=== PATIENT | female | born 1985 | race Caucasian/White ===

== ENCOUNTER 2016-07-09 10:55 | Emergency (ER) | payer OTHER ==
[~2016-07-09] VITALS: Ht 160 cm; Wt 50.5 kg
[~2016-07-09 10:55] MED LIST: AUGMENTIN875 MG PO; BACTRIM,SEPT1 TABLET PO; CETIRIZINE HCL10 M2 PO; CIPRODEX OTIC7.5 ML LEFT EAR; CLEOCIN300 MG PO; EXCEDRIN MIGRA1 EAC1 PO; GABAPENTIN400 MG PO; GABAPENTIN800 MG PO; IBUPROFEN800 MG PO; KEPPRA500 MG PO; LEVAQUIN500 MG PO; LEVETIRACETAM250 MG PO; MECLIZINE HCL25 MG PO; MEDROL DOSEPAK4 MG PO; NAPROSYN500 MG PO; NAPROXEN500 MG PO; NOHOMEMEDS; NORCO 5/3251 TABLET PO; OTIPRIO1 ML BOTH EARS; PAROXETINE HCL40 MG PO; PERCOCET 5/31 TABLET PO; PREDNISONE20 MG PO; PROGESTERONE200 MG PO; RANITIDINE HCL150 MG PO; ROXICODONE5 MG PO; SOMA350 MG PO; TIZANIDINE HCL4 MG PO; TYLENOL EXTRA500 MG PO; VALIUM5 MG PO; ZOFRAN ODT4 MG PO; ZOFRAN8 MG PO
[2016-07-09] MEDS ORDERED: ATARAX,VISTARIL25 MG PO (13:48)
[2016-07-09 14:03] VITALS: BP 119/68
== END 2016-07-09 14:04 | disposition home or self-care (01) ==
LOC: EME 10:55
DX: T38.0X5A Adverse effect of glucocorticoids and synthetic analogues, initial encounter (principal); F41.9 Anxiety disorder, unspecified; F43.9 Reaction to severe stress, unspecified; Z98.890 Other specified postprocedural states; F17.200 Nicotine dependence, unspecified, uncomplicated; Z71.6 Tobacco abuse counseling
CPT/HCPCS: 99281; 99284; Q0177

== ENCOUNTER 2016-10-11 20:06 | Emergency (ER) | payer SELFPAY ==
[~2016-10-11] VITALS: Ht 162.6 cm; Wt 52.6 kg
[~2016-10-11 20:06] MED LIST changes: +ATARAX,VISTARIL25 MG PO
[2016-10-11 20:19] VITALS: BP 144/96
[2016-10-11 21:32] LABS: HEMATOCRIT 39.2 % (36.0-46.0); MCHC 31.9 G/DL (30.0-36.0); MEAN PLAT.VOLUME 10.7 uM^3 (9.5-12.4); PLATELET COUNT 163 K/uL (156-360); RBC DIS.WIDTH-CV 14.8 % (11.8-14.6); RBC DIS.WIDTH-SD 51.1 % (39-53); RED BLOOD COUNT 4.17 M/uL (3.80-5.20); WHITE BLOOD COUNT 7.3 K/uL (4.1-10.2)
[2016-10-11 21:40] LABS: CHLORIDE 106 mEq/L (99-109); POTASSIUM 3.6 mEq/L (3.7-5.4); SODIUM 139 mEq/L (136-147)
[2016-10-11 21:42] LABS: GLUCOSE 79 mg/dL (70-99)
[2016-10-11 21:43] LABS: ANION GAP 9 MEQ/L (2-14)
[2016-10-11 21:45] LABS: GFR ESTIMATE (CALCULATED) > 59 mL/min/
[2016-10-11 21:46] LABS: UREA NITROGEN (BUN) 6 mg/dL (9-23)
== END 2016-10-11 22:51 | disposition left against medical advice (07) ==
LOC: EME 20:06
PROVIDERS: Emergency Medicine
DX: H60.92 Unspecified otitis externa, left ear (principal); F17.200 Nicotine dependence, unspecified, uncomplicated
CPT/HCPCS: 70487; 80048; 85027; 99281; 99283

== ENCOUNTER 2016-10-31 08:34 | Day surgery (SDC) | payer OTHER ==
[~2016-10-31] VITALS: Ht 162.6 cm; Wt 51.3 kg
[~2016-10-31 08:34] MED LIST changes: +KEFLEX500 MG PO; +NEURONTIN300 MG PO; +PAXIL20 MG PO; +PREDNISONE10 MG PO
== END 2016-10-31 10:37 | disposition home or self-care (01) ==
LOC: PAIN 08:34 → SDC 09:00 → PAIN 09:00
DX: M47.26 Other spondylosis with radiculopathy, lumbar region (principal); F41.9 Anxiety disorder, unspecified; M51.26 Other intervertebral disc displacement, lumbar region; F17.200 Nicotine dependence, unspecified, uncomplicated; Q35.9 Cleft palate, unspecified; Z88.8 Allergy status to other drugs, medicaments and biological substances
CPT/HCPCS: J1030; J2250; J3010; S0020

== ENCOUNTER 2016-11-07 08:30 | Day surgery (SDC) | payer OTHER | END 2016-11-07 10:28 | disposition home or self-care (01) | LOC: PAIN 08:30 → SDC 09:00 → PAIN 09:00 | DX: M47.26 Other spondylosis with radiculopathy, lumbar region (principal); F41.8 Other specified anxiety disorders; F17.200 Nicotine dependence, unspecified, uncomplicated; Z88.8 Allergy status to other drugs, medicaments and biological substances | CPT/HCPCS: J1030; J2250; J3010; S0020 ==

== ENCOUNTER 2016-12-19 11:21 | Emergency (ER) | payer OTHER ==
[~2016-12-19] VITALS: Ht 160 cm; Wt 51.0 kg
[2016-12-19 11:32] VITALS: BP 128/96
[2016-12-19] MEDS ORDERED: KEPPRA750 MG PO (13:00)
[2016-12-19] MEDS ORDERED: PREDNISONE10 M1 PO (13:32)
[2016-12-19] MEDS ORDERED: NORCO 5/3251 TABLET PO (13:32)
[2016-12-19] MEDS ORDERED: KEFLEX500 MG PO (13:32)
== END 2016-12-19 13:53 | disposition home or self-care (01) ==
LOC: EME 11:21
DX: L30.9 Dermatitis, unspecified (principal); M79.7 Fibromyalgia; G40.909 Epilepsy, unspecified, not intractable, without status epilepticus; F17.200 Nicotine dependence, unspecified, uncomplicated
CPT/HCPCS: 99281; 99283

== ENCOUNTER 2016-12-28 11:00 | Emergency (ER) | payer OTHER ==
[~2016-12-28] VITALS: Ht 162.6 cm; Wt 51.8 kg
[~2016-12-28 11:00] MED LIST changes: +KEPPRA750 MG PO; +PREDNISONE10 M1 PO
[2016-12-28] MEDS ORDERED: TRAMADOL HCL50 MG PO (13:24)
[2016-12-28] MEDS ORDERED: ZYRTEC10 M2 PO (13:24)
[2016-12-28] MEDS ORDERED: GUAIFENESIN600 M1 PO (13:24)
[2016-12-28] MEDS ORDERED: RHINOCORT ALL8.43 ML BOTH NARES (13:24)
[2016-12-28 13:43] VITALS: BP 118/79
== END 2016-12-28 13:43 | disposition home or self-care (01) ==
LOC: EME 11:00
DX: J34.89 Other specified disorders of nose and nasal sinuses (principal); G89.29 Other chronic pain; R51 Headache; H92.02 Otalgia, left ear; F17.200 Nicotine dependence, unspecified, uncomplicated; Z71.6 Tobacco abuse counseling; Z88.8 Allergy status to other drugs, medicaments and biological substances
CPT/HCPCS: 99281; 99285; J1885

== ENCOUNTER 2017-03-20 09:06 | Day surgery (SDC) | payer OTHER ==
[~2017-03-20] VITALS: Ht 162.6 cm; Wt 51.3 kg
[~2017-03-20 09:06] MED LIST changes: +GUAIFENESIN600 M1 PO; +RHINOCORT ALL8.43 ML BOTH NARES; +TRAMADOL HCL50 MG PO; +ZYRTEC10 M2 PO
[2017-03-20] MEDS ORDERED: NEURONTIN600 MG PO (09:23)
== END 2017-03-20 10:45 | disposition home or self-care (01) ==
LOC: PAIN 09:06 → SDC 09:30 → PAIN 09:30
DX: M54.16 Radiculopathy, lumbar region (principal); M51.16 Intervertebral disc disorders with radiculopathy, lumbar region; M54.5 Low back pain; G89.29 Other chronic pain; F17.200 Nicotine dependence, unspecified, uncomplicated
CPT/HCPCS: J1030; J2250; J3010; S0020

== ENCOUNTER 2017-03-29 14:45 | Emergency (ER) | payer OTHER ==
[~2017-03-29] VITALS: Ht 160 cm; Wt 54.4 kg
[~2017-03-29 14:45] MED LIST changes: +NEURONTIN600 MG PO
[2017-03-29] MEDS ORDERED: INDOCIN50 MG PO (16:49)
[2017-03-29 17:10] VITALS: BP 110/62
== END 2017-03-29 17:11 | disposition home or self-care (01) ==
LOC: EME 14:45
DX: G89.29 Other chronic pain (principal); R51 Headache; M79.7 Fibromyalgia; F17.200 Nicotine dependence, unspecified, uncomplicated; Z88.8 Allergy status to other drugs, medicaments and biological substances
CPT/HCPCS: 70150; 99281; 99284

== ENCOUNTER 2017-04-08 11:10 | Inpatient (IN) | payer OTHER ==
[~2017-04-08] VITALS: Ht 160 cm; Wt 51.0 kg
[~2017-04-08 11:10] MED LIST changes: +INDOCIN50 MG PO
[2017-04-08 13:41] LABS: HEMATOCRIT 42.8 % (36.0-46.0); MCH 31.3 PG (29.0-34.0); MCHC 32.9 G/DL (30.0-36.0); MCV 95.1 FL (83-99); PLATELET COUNT 194 K/uL (156-360); RBC DIS.WIDTH-CV 14.6 % (11.8-14.6); RBC DIS.WIDTH-SD 51.4 % (39-53); WHITE BLOOD COUNT 9.6 K/uL (4.1-10.2)
[2017-04-08 13:58] LABS: SERUM ETHYL ALCOHOL 75 mg/dL
[2017-04-08 14:06] LABS: QUANTITATIVE HCG < 4.0 MIU/ML
[2017-04-08 14:14] LABS: AMPHETAMINE NEGATIVE (500 ng/mL); BARBITURATES NEGATIVE (200 ng/mL); BENZODIAZEPINES NEGATIVE (150 ng/mL); COCAINE NEGATIVE (150 ng/mL); INTERNAL CONTROLS VALID? YES; METHADONE NEGATIVE (200 ng/mL); METHAMPHETAMINE NEGATIVE (500 ng/mL); OPIATES (MORPHINE) NEGATIVE (100 ng/mL); OXYCODONE NEGATIVE (100 ng/mL); PHENCYCLIDINE NEGATIVE (25 ng/mL); PROPOXYPHENE NEGATIVE (300 ng/mL); THC CANNABINOIDS NEGATIVE (50 ng/mL); TRICYCLIC ANTIDEPRESSANTS NEGATIVE (300 ng/mL)
[2017-04-08 16:30] VITALS: BP 128/92
[2017-04-08] MEDS ORDERED: CLONAZEPAM0.5 MG PO (16:37)
[2017-04-08] MEDS ORDERED: EXCEDRIN MIGRA1 EAC3 PO (16:39)
[2017-04-09 07:16] VITALS: BP 116/62
[2017-04-09 15:28] VITALS: BP 95/65
[2017-04-10 07:54] VITALS: BP 96/51
[2017-04-10 15:37] VITALS: BP 141/86
[2017-04-11 07:44] VITALS: BP 97/57
[2017-04-11 15:36] VITALS: BP 95/60
[2017-04-12 07:52] VITALS: BP 85/53
[2017-04-12 15:32] VITALS: BP 102/55
[2017-04-13 07:38] VITALS: BP 85/56
[2017-04-13] MEDS ORDERED: BUTALB-APAP-CA1 EACH PO (10:42)
[2017-04-13] MEDS ORDERED: HYDROXYZINE PAM50 MG PO (10:42)
[2017-04-13] MEDS ORDERED: CLONAZEPAM0.5 MG PO (10:42)
== END 2017-04-13 12:51 | disposition home or self-care (01) | DRG 882 ==
LOC: EME 11:10 → 1WEST 13:18 → EDOF 13:18 → ENRESERV 16:07 → 1WEST 16:24
PROVIDERS: Emergency Medicine
DX: F43.23 Adjustment disorder with mixed anxiety and depressed mood (principal); M79.7 Fibromyalgia; R45.851 Suicidal ideations; Z56.0 Unemployment, unspecified; F17.200 Nicotine dependence, unspecified, uncomplicated; F12.90 Cannabis use, unspecified, uncomplicated; G25.81 Restless legs syndrome; Z81.8 Family history of other mental and behavioral disorders
CPT/HCPCS: 84702; 85027; 90839; 97150 GO; 97165 GO; 99281; 99285; G0480; Q0177